=== PATIENT | female | born 1950 | race Caucasian/White ===

== ENCOUNTER 2024-05-07 00:29 | Emergency (ER) | payer OTHER ==
[2024-05-07 00:40] VITALS: PULSE 69; TEMP 98.6; BMI 27.1
[2024-05-07] MEDS ORDERED: ACETAMINOPHEN 500 MG TABLET (FP) ONE (01:22)
[2024-05-07] MEDS: ACETAMINOPHEN 500 MG TABLET (FP) PO ONE (01:25)
[2024-05-07 01:32] LABS: BASO % 0.6 % (0-2.0); EOS % 0.9 % (0-4.5); HEMATOCRIT 39.1 % (32.4-45.2); HEMOGLOBIN 13.1 GM/dL (10.7-15.3); LYMPH % 16.4 % (8-40); MCH 30.4 pg (25.7-33.7); MCHC 33.6 g/dl (32.0-36.0); MEAN CELL VOLUME 90.3 fl (80-96); MEAN PLT VOLUME 9.4 fl (7.5-11.1); MONO % 6.7 % (3.8-10.2); NEUT % 75.4 % (42.8-82.8); PLATELET COUNT 291 10^3/uL (134-434); RBC 4.33 M/mm3 (3.60-5.2); RDW 13.1 % (11.6-15.6); WHITE BLOOD COUNT 9.7 K/mm3 (4.0-10.0)
[2024-05-07 01:35] LABS: EPI CELLS 19 /uL (0-25.1); HYALINE CASTS 1 /uL (0-3.1); PH,URINE 6.5 (5.0-8.0); URINE APPEARANCE CLEAR; URINE BACTERIA 676 /uL (0-1359); URINE BILIRUBIN NEGATIVE (NEGATIVE); URINE COLOR YELLOW; URINE GLUCOSE (UA) NEGATIVE (NEGATIVE); URINE KETONE NEGATIVE (NEGATIVE); URINE LEUK ESTERASE 3+ (NEGATIVE); URINE NITRITE NEGATIVE (NEGATIVE); URINE PROTEIN NEGATIVE (NEGATIVE); URINE RBC 7 /uL (0-23.9); URINE UROBILINOGEN 0.2 mg/dL (0.2-1.0); URINE WBC 191 /uL (0-25.8)
[2024-05-07 01:56] LABS: POTASSIUM 4.1 mmol/L (3.5-5.1)
[2024-05-07 01:58] LABS: CALCIUM 9.1 mg/dL (8.5-10.1)
[2024-05-07 01:59] LABS: ALBUMIN 3.6 g/dl (3.4-5.0); BLOOD UREA NITROGEN 14.4 mg/dL (7-18)
[2024-05-07 02:02] LABS: CREATININE 0.7 mg/dL (0.55-1.3)
[2024-05-07 02:04] LABS: BILIRUBIN,TOTAL 0.4 mg/dL (0.2-1); TOT PROT 7.1 g/dl (6.4-8.2)
[2024-05-07] MEDS ORDERED: CEPHALEXIN MONOHYDRATE 500 MG CAPSULE (UD) ONE (02:06)
[2024-05-07] MEDS: CEPHALEXIN 250 MG/5 ML ORAL SUSPENSION PO ONE (02:09)
[2024-05-07 02:18] VITALS: BP 149/57; RESP 19
== END 2024-05-07 02:47 | disposition home or self-care (01) ==
LOC: JER 00:29
DX: I10 Essential (primary) hypertension (principal); R51.9 Headache, unspecified; R07.2 Precordial pain
CPT/HCPCS: 36415; 80053; 81003; 84484; 85025; 87077; 87086; 93005; 93010; 99284-25

== ENCOUNTER 2024-06-02 08:40 | Emergency (ER) | payer OTHER ==
[2024-06-02 08:48] VITALS: BP 155/64; PULSE 76; RESP 18; TEMP 98.4; BMI 26.4
[2024-06-02] MEDS ORDERED: ACETAMINOPHEN 500 MG TABLET (FP) ONE (10:25)
[2024-06-02] MEDS: ACETAMINOPHEN 500 MG TABLET (FP) PO ONE (10:29)
[2024-06-02 11:00] LABS: BASO % 0.9 % (0-2.0); EOS % 0.9 % (0-4.5); HEMATOCRIT 36.1 % (32.4-45.2); HEMOGLOBIN 12.2 GM/dL (10.7-15.3); LYMPH % 22.9 % (8-40); MCH 30.7 pg (25.7-33.7); MCHC 33.9 g/dl (32.0-36.0); MEAN CELL VOLUME 90.8 fl (80-96); MEAN PLT VOLUME 9.1 fl (7.5-11.1); NEUT % 67.3 % (42.8-82.8); PLATELET COUNT 341 10^3/uL (134-434); RBC 3.97 M/mm3 (3.60-5.2); RDW 12.9 % (11.6-15.6)
[2024-06-02 11:21] LABS: POTASSIUM 4.4 mmol/L (3.5-5.1)
[2024-06-02 11:22] LABS: CALCIUM 9.5 mg/dL (8.5-10.1)
[2024-06-02 11:23] LABS: ALBUMIN 3.4 g/dl (3.4-5.0); BLOOD UREA NITROGEN 19.8 mg/dL (7-18)
[2024-06-02 11:26] LABS: CREATININE 0.7 mg/dL (0.55-1.3)
[2024-06-02 11:28] LABS: BILIRUBIN,TOTAL 0.2 mg/dL (0.2-1)
== END 2024-06-02 12:49 | disposition home or self-care (01) ==
LOC: JER 08:40
DX: R07.9 Chest pain, unspecified (principal); R06.02 Shortness of breath; R51.9 Headache, unspecified; G89.29 Other chronic pain
CPT/HCPCS: 36415; 71046-TC-FY; 80053; 84484; 85025; 93005; 93010; 99285-25

== ENCOUNTER 2024-06-03 11:12 | Emergency (ER) | payer OTHER ==
[2024-06-03 11:21] VITALS: BP 161/71; PULSE 77; RESP 18; TEMP 97.7; BMI 25.7
== END 2024-06-03 12:40 | disposition home or self-care (01) ==
LOC: JER 11:12
DX: I10 Essential (primary) hypertension (principal)
CPT/HCPCS: 82962; 93005; 93010; 99284-25

== ENCOUNTER 2024-10-19 23:53 | Emergency (ER) | payer OTHER ==
[2024-10-20 00:06] VITALS: PULSE 77; RESP 20; TEMP 98.6; BMI 25.5
[2024-10-20] MEDS ORDERED: METOCLOPRAMIDE HCL INJECTION 10 MG/2 ML VIAL ONE (00:28)
[2024-10-20] MEDS ORDERED: ACETAMINOPHEN INJECTION 100 ML ONE (00:29)
[2024-10-20] MEDS: METOCLOPRAMIDE HCL INJECTION 10 MG/2 ML VIAL IVPUSH ONE (00:46)
[2024-10-20] MEDS: ACETAMINOPHEN 1000 MG/100 ML BAG IVPB ONE (00:46)
[2024-10-20 00:52] LABS: ABSOLUTE IMMATURE GRANULOCYTES 0.03 x10^3/uL (0.0-0.031); BASOPHILS # 0.11 x10^3/uL (0.01-0.08); EOSINOPHIL % 3.1 % (0.7-5.8); EOSINOPHILS # 0.29 x10^3/uL (0.04-0.36); HEMATOCRIT 36.7 % (34.1-44.9); HEMOGLOBIN 12.1 g/dL (11.2-15.7); MEAN CELL VOLUME 91.5 fl (79.4-94.8); MEAN PLT VOLUME 11.2 fl (9.4-12.3); MONOCYTE % 8.5 % (4.7-12.5); PLATELET COUNT 294 x10^3/uL (182-369); RDW 12.4 % (12.4-16.6)
[2024-10-20 01:18] LABS: POTASSIUM 4.5 mmol/L (3.5-5.1)
[2024-10-20 01:20] LABS: CALCIUM 9.3 mg/dL (8.5-10.1)
[2024-10-20 01:21] LABS: ALBUMIN 3.7 g/dl (3.4-5.0); BLOOD UREA NITROGEN 27.4 mg/dL (7-18)
[2024-10-20 01:24] LABS: CREATININE 0.8 mg/dL (0.55-1.3)
[2024-10-20 01:25] LABS: BILIRUBIN,TOTAL 0.2 mg/dL (0.2-1)
[2024-10-20 02:30] VITALS: BP 117/47
== END 2024-10-20 02:31 | disposition home or self-care (01) ==
LOC: JER 23:53
PROC: 3E033NZ Introduction of Analgesics, Hypnotics, Sedatives into Peripheral Vein, Percutaneous Approach (ICD-10-PCS; principal; 2024-10-20)
PROC: 3E033GC Introduction of Other Therapeutic Substance into Peripheral Vein, Percutaneous Approach (ICD-10-PCS; 2024-10-20)
PROC: 3E033GC Introduction of Other Therapeutic Substance into Peripheral Vein, Percutaneous Approach (ICD-10-PCS; 2024-10-20)
DX: R51.9 Headache, unspecified (principal); I10 Essential (primary) hypertension
CPT/HCPCS: 36415; 70450-TC; 80053; 85025; 93005; 93010; 96374; 96375; 99285-25; J0131